=== PATIENT | female | born 1985 | race Caucasian/White ===

== ENCOUNTER 2017-07-13 16:37 | Emergency (ER) | payer SELFPAY ==
[~2017-07-13 16:37] MED LIST: CEPH500T7 PO; CYCL10TA29 PO; IBUP400T13 PO; LOR5/325 PO; NAPR500T75 PO; ONDA4TAB97 PO; OXYC-865 PO; SULF-198 PO
--- NOTE | 2017-07-13 16:43 | ER Report ---
History and Physical Time Seen By MD: 16:43 HPI/ROS CHIEF COMPLAINT: wrist and forearm injury HISTORY OF PRESENT ILLNESS: This is a 31 year old female. She slipped on the ice and her hand slammed forward into the wall by the door. She has swelling and pain in the distal forearm and wrist area. She can move her fingers, but causes increased pain. Having some numbness in the forearm, wrist and hand. Has some areas of bruising of the wrist and forearm. She says the pain is not severe , she is more concerned with the swelling and bruising. Allergies: Coded Allergies: prochlorperazine (Verified Allergy, Unknown, 07/13/17) IRREGULAR HEARTBEAT, JAUNDICE IN EYES sumatriptan (Verified Allergy, Unknown, 07/13/17) IRREGULAR HEARTBEAT, JAUNDICE IN EYES Home Meds Discontinued Scripts Sulfamethoxazole/Trimet 800-160 Mg Tab (BACTRIM DS TABLET) 1 Each Tablet, 1 TAB PO Q12H, #20 TAB 0 Refills Prov:ISABELLA WASHINGTON MD 10/09/16 Reviewed Nurses Notes: Yes Hx Substance Use Disorder: No Hx Alcohol Use: No Constitutional Vital Sign - Last 24 Hours 07/13/17 07/13/17 16:43 18:12 Temp 97.8 Pulse 117 93 Resp 16 B/P (MAP) 125/100 103/83 (90) Pulse Ox 100 96 O2 Delivery Room Air Room Air Physical Exam General: Alert, having some distress due to her symptoms. Musculoskeletal: Pain with palpation over the mid forearm and wrist area. Some pain with moving fingers and hand, but pain in the wrist and forearms. Skin: Some bruising and swelling of the wrist and forearm. Cardiovascular: Good capillary refill and pulses. Neuro: Has some decrease sensation throughout the wrist and forearm, but no cheryl numbness. Medical Decision Making EKG/Imaging Imaging Examination: WRIST RIGHT MIN 3 VIEW, FOREARM RIGHT Comparison: None. History: fall, wrist/forearm pain and swelling Findings: 2 views right forearm: No fracture. Elbow alignment is within normal limits although if there is a significant concern for elbow pathology consider further characterization with dedicated elbow radiographs. Soft tissues are unremarkable. 3 views right wrist: No fracture. Alignment and joint spaces are within normal limits. Soft tissues are unremarkable. IMPRESSION: Negative right forearm and right wrist. Report Dictated By: Guicho Madsen MD at 07/13/2017 5:52 PM ED Course/Re-evaluation ED Course Reviewed the imaging results with the patient. Conservative measures for contusion and strain. Decision to Disposition Date: Jul 13, 2017 Decision to Disposition Time: 17:57 Depart Departure Latest Vital Signs Vital Signs Date Time Temp Pulse Resp B/P (MAP) Pulse Ox O2 Delivery O2 Flow Rate FiO2 07/13/17 18:12 93 103/83 (90) 96 Room Air 07/13/17 16:43 97.8 16 Impression: Primary Impression: Contusion of forearm, right Additional Impression: Right wrist sprain Condition: Improved Disposition: HOME OR SELF-CARE New Scripts No Active Prescriptions or Reported Meds Patient Instructions: Contusion in Adults (ED), Sprain (ED) Additional Instructions: Ibuprofen 200mg over the counter tablets, take 4 tablets three times a day with food. Apply ice 20 minutes every 1-2 hours while awake. An NESTOR wrap can be used for compression to help reduce swelling. Rest the injured area, keep it elevated while at rest. Begin gentle range of motion exercises. Problem Qualifiers Primary Impression: Contusion of forearm, right Encounter type: initial encounter Qualified Codes: S50.11XA - Contusion of right forearm, initial encounter Additional Impression: Right wrist sprain Encounter type: initial encounter Qualified Codes: S63.501A - Unspecified sprain of right wrist, initial encounter ISABELLA WASHINGTON MD Jul 13, 2017 16:43
[2017-07-13] MEDS ORDERED: IBUPROFEN 800 MG TAB PO ONE (17:55)
--- NOTE | 2017-07-13 17:59 | RADIOLOGY IMAGING REPORT ---
FACILITY: [facility] PATIENT NAME: Fide Burger : 1985 MR: [id number] V: [id number] EXAM DATE: ORDERING PHYSICIAN: ISABELLA WASHINGTON TECHNOLOGIST: Location: [facility] Patient: Fide Burger : 1985 Visit/Account:[id number] Date of Sevice: 07/13/2017 Examination: WRIST RIGHT MIN 3 VIEW, FOREARM RIGHT Comparison: None. History: fall, wrist/forearm pain and swelling Findings: 2 views right forearm: No fracture. Elbow alignment is within normal limits although if there is a si gnificant concern for elbow pathology consider further characterization with dedicated elbow radiogra phs. Soft tissues are unremarkable. 3 views right wrist: No fracture. Alignment and joint spaces are within normal limits. Soft tissues a re unremarkable. IMPRESSION: Negative right forearm and right wrist. Report Dictated By: Guicho Madsen MD at 07/13/2017 5:52 PM Report E-Signed By: Guicho Madsen MD at 07/13/2017 5:55 PM WSN:[id number]
--- NOTE | 2017-07-13 17:59 | RADIOLOGY IMAGING REPORT ---
[place] [facility] [place]: Fide Burger : 1985 MR: [id number] V: [id number] EXAM DATE: ORDERING PHYSICIAN: ISABELLA WASHINGTON TECHNOLOGIST: Location: [facility] Patient: Fide Burger : 1985 Visit/Account:[id number] Date of Sevice: 07/13/2017 Examination: WRIST RIGHT MIN 3 VIEW, FOREARM RIGHT Comparison: None. History: fall, wrist/forearm pain and swelling Findings: 2 views right forearm: No fracture. Elbow alignment is within normal limits although if there is a si gnificant concern for elbow pathology consider further characterization with dedicated elbow radiogra phs. Soft tissues are unremarkable. 3 views right wrist: No fracture. Alignment and joint spaces are within normal limits. Soft tissues a re unremarkable. IMPRESSION: Negative right forearm and right wrist. Report Dictated By: Guicho Madsen MD at 07/13/2017 5:52 PM Report E-Signed By: Guicho Madsen MD at 07/13/2017 5:55 PM WSN:[id number]
[2017-07-13 18:12] VITALS: BP 103/83
== END 2017-07-13 18:16 | disposition home or self-care (01) ==
LOC: ER 16:48
DX: S50.11XA Contusion of right forearm, initial encounter (principal); S63.501A Unspecified sprain of right wrist, initial encounter
CPT/HCPCS: 99283

== ENCOUNTER 2017-11-04 09:36 | Emergency (ER) | payer SELFPAY ==
--- NOTE | 2017-11-04 10:42 | RADIOLOGY IMAGING REPORT ---
FACILITY: [facility] [place] PATIENT NAME: Fide Burger : 1985 MR: [id number] V: [id number] EXAM DATE: ORDERING PHYSICIAN: DONOVAN DAVIS TECHNOLOGIST: Location: [facility] Patient: Fide Burger : 1985 Visit/Account:[id number] Date of Sevice: 11/04/2017 WRIST LEFT MIN 3 VIEW HISTORY: Injury COMPARISON: None FINDINGS: The scaphoid bone is suboptimally profiled. No distal radial or ulnar fracture. Carpal rows are well aligned. Scaphoid bone is intact. IMPRESSION: 1. The scaphoid bone is suboptimally profiled. Otherwise no acute fracture or dislocation. Recommend dedicated scaphoid imaging if there are symptoms referrable to this site. Report Dictated By: Dionicio Estrada MD at 11/04/2017 10:37 AM Report E-Signed By: Dionicio Estrada MD at 11/04/2017 10:39 AM WSN:[id number]
[2017-11-04] MEDS ORDERED: ACETAMINOPHEN 325 MG TAB PO ONE (11:20)
--- NOTE | 2017-11-04 11:23 | ER Report ---
History and Physical Time Seen By MD: 09:45 Hx. of Stated Complaint: LEFT WRIST PAIN THAT STARTED APROX 5 DAYS. 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 No chest/shoulder pain, no sob, fevers, weakness secondary only to pain REVIEW OF SYSTEMS: Respiratory: No cough, no dyspnea. Cardiovascular: No chest pain, no palpitations. Gastrointestinal: No vomiting, no abdominal pain. Musculoskeletal: No back pain. Allergies: Coded Allergies: prochlorperazine (Verified Allergy, Unknown, 11/04/17) IRREGULAR HEARTBEAT, JAUNDICE IN EYES sumatriptan (Verified Allergy, Unknown, 11/04/17) IRREGULAR HEARTBEAT, JAUNDICE IN EYES Home Meds No Active Prescriptions or Reported Meds Reviewed Nurses Notes: Yes Hx Smoking: No Hx Substance Use Disorder: No Hx Alcohol Use: No Constitutional Vital Sign - Last 24 Hours 11/04/17 09:44 Temp 98.0 Pulse 70 Resp 16 Pulse Ox 97 O2 Delivery Room Air Physical Exam General Appearance: The patient is alert, has no immediate need for airway protection and no current signs of toxicity. [ ] Eyes: Pupils equal and round no injection. Respiratory: Chest is non tender, lungs are clear to auscultation. Cardiac: regular rate and rhythm [ ] Musculoskeletal: Neck: Neck is supple and non tender. Extremities: L arm - ttp at l ulnar groove at elbow; reproduces paresthesias and symptoms. No proximal ttp or paresthesia. Paresthesa continues in ulnar distribution including ulnar fingers; 5/5 ms flexion/extension, 5/5 finger stonemason , giveaway weakness on finger abduction. Bony ttp at distal ulnar carpal bones. No other bony ttp Skin: No rashes or lesions. [ ] DIFFERENTIAL DIAGNOSIS: After history and physical exam differential diagnosis was considered for fracture, acs, ligament injury, neuropathy, cva or other emergent etiology of symptoms Medical Decision Making EKG/Imaging Imaging X-ray: L wrist was obtained. I viewed the images myself on the PACS system. My interpretation of the images is: no fracture. The radiologist interpretation had no clinically significant variation from this interpretation.Of note, while scaphoid is inocmpletley visualized as per rads report, pt does not have scaphoid/snuff box ttp ED Course/Re-evaluation ED Course Pt refuses pain meds initially, requesting tylenol on reassessment; xray to r/o fx is unremarakble. No e/o ligamentous laxity; findings c/w overuse/ulnar neuropathy; pt given instructions on this, recommend nsaid course, rest as tolerated or able, and f/u with pcm (pt will establish) for pt/further imaging referral as needed. No e/o acs,cva, or other emergent etiology. Decision to Disposition Date: Nov 04, 2017 Decision to Disposition Time: 11:20 Depart Departure Latest Vital Signs Vital Signs Date Time Temp Pulse Resp B/P (MAP) Pulse Ox O2 Delivery O2 Flow Rate FiO2 11/04/17 09:44 98.0 70 16 97 Room Air Impression: Primary Impression: Left wrist sprain Additional Impression: Ulnar neuropathy Condition: Improved Disposition: HOME OR SELF-CARE New Scripts No Active Prescriptions or Reported Meds Departure Forms: ER Transition Record, Medications Reconciliation, Off Work/ School Form, School or Work Release?: Work Number of days to be released: 2 Patient Portal Information Patient Instructions: Peripheral Neuropathy (ED) Additional Instructions: As we discussed, rest as much as possible, but continue range of motion daily. You may use ibuprofen 600mg every 8 hours for pain and inflammation. Return for any new weakness, fevers, or uncontrolled pain. Once you establish a primary doctor, follow up for physical therapy referral. Problem Qualifiers Primary Impression: Left wrist sprain Encounter type: initial encounter Qualified Codes: S63.502A - Unspecified sprain of left wrist, initial encounter Additional Impression: Ulnar neuropathy Laterality: left Qualified Codes: G56.22 - Lesion of ulnar nerve, left upper limb DONOVAN DAVIS MD Nov 04, 2017 11:23
== END 2017-11-04 11:33 | disposition home or self-care (01) ==
LOC: ER 09:39
DX: S63.502A Unspecified sprain of left wrist, initial encounter (principal); X58.XXXA Exposure to other specified factors, initial encounter
CPT/HCPCS: 73110; 99283; A4565

== ENCOUNTER 2017-11-12 19:40 | Emergency (ER) | payer SELFPAY ==
--- NOTE | 2017-11-12 19:58 | ER Report ---
History and Physical Time Seen By MD: 19:57 Hx. of Stated Complaint: PT REPORTS ABNORMAL VAGINAL BLEEDING 1 WEEK AFTER END OF PERIOD; PINPOINT PAIN IN MID PELVIC REGION AND MID BACK, CRAMPING, 2 DAYS; NAUSEA, ROUGH SEXUAL ACTIVITY PT THINKS MIGHT HAVE CAUSED TEARING HPI/ROS CHIEF COMPLAINT: Pelvic pain, vaginal bleeding HISTORY OF PRESENT ILLNESS: Patient is a 32-year-old female here with complaints of vaginal bleeding, mid pelvic pain with radiation to the mid back, cramping for the past 2 days after sexual intercourse. Patient reports having 2 prior tubal ligations one of which had failed previously. She was concerned that she had vaginal tearing and was concerned that she was having persistent vaginal and pelvic pain. Patient is afebrile at time of evaluation, denies chest pain, shortness breath, nausea, vomiting. REVIEW OF SYSTEMS: Constitutional: No fever, no chills. Eyes: No discharge. ENT: No sore throat. Cardiovascular: No chest pain, no palpitations. Respiratory: No cough, no shortness of breath. Gastrointestinal: No abdominal pain, no vomiting. Genitourinary: No hematuria, + vaginal bleeding, pelvic pain Musculoskeletal: + Mild back pain. Skin: No rashes. Neurological: No headache. Allergies: Coded Allergies: prochlorperazine (Verified Allergy, Unknown, 11/04/17) IRREGULAR HEARTBEAT, JAUNDICE IN EYES sumatriptan (Verified Allergy, Unknown, 11/04/17) IRREGULAR HEARTBEAT, JAUNDICE IN EYES Home Meds No Active Prescriptions or Reported Meds Hx Smoking: No Hx Substance Use Disorder: No Hx Alcohol Use: No Constitutional Vital Sign - Last 24 Hours 11/12/17 19:49 Temp 98.7 Pulse 67 Resp 16 B/P (MAP) 125/96 Pulse Ox 98 O2 Delivery Room Air Physical Exam General Appearance: The patient is alert, has no immediate need for airway protection and no signs of toxicity. No acute distress Eyes: Pupils equal and round no pallor or injection. ENT, Mouth: Mucous membranes are moist. Respiratory: There are no retractions, lungs are clear to auscultation. Cardiovascular: Regular rate and rhythm. Gastrointestinal: Abdomen is soft and non tender, no masses, bowel sounds normal. Neurological: No focal neurological deficits Skin: Warm and dry, no rashes. Musculoskeletal: Neck is supple non tender. Extremities are nontender, nonswollen and have full range of motion. DIFFERENTIAL DIAGNOSIS: After history and physical exam differential diagnosis was considered for abdominal pain including but not limited to appendicitis, cholecystitis, gastritis and urinary tract infection, vaginal tearing, ectopic Medical Decision Making Data Points Result Diagram: 11/12/17201711/12/172017 Laboratory Hematology Test 11/12/17 19:51 11/12/17 20:18 Urine HCG, Qualitative Negative (NEGATIVE) Red Blood Count 4.04 M/uL (4.17-5.56) Mean Corpuscular Volume 79.6 fL (80.0-96.0) Mean Corpuscular Hemoglobin 27.6 pg (26.0-33.0) Mean Corpuscular Hemoglobin Concent 34.7 g/dL (32.0-36.0) Red Cell Distribution Width 18.0 % (11.5-14.5) Mean Platelet Volume 7.6 fL (7.2-11.1) Neutrophils (%) (Auto) 40.3 % (39.4-72.5) Lymphocytes (%) (Auto) 48.5 % (17.6-49.6) Monocytes (%) (Auto) 9.1 % (4.1-12.4) Eosinophils (%) (Auto) 1.5 % (0.4-6.7) Basophils (%) (Auto) 0.6 % (0.3-1.4) Nucleated RBC Relative Count (auto) 0.1 /100WBC Neutrophils # (Auto) 2.1 K/uL (2.0-7.4) Lymphocytes # (Auto) 2.6 K/uL (1.3-3.6) Monocytes # (Auto) 0.5 K/uL (0.3-1.0) Eosinophils # (Auto) 0.1 K/uL (0.0-0.5) Basophils # (Auto) 0.0 K/uL (0.0-0.1) Nucleated RBC Absolute Count (auto) 0.00 K/uL Sodium Level 140 mmol/L (137-145) Potassium Level 3.6 mmol/L (3.5-5.0) Chloride Level 106 mmol/L (98-107) Carbon Dioxide Level 21 mmol/L (22-31) Blood Urea Nitrogen 24 mg/dl (7-18) Creatinine 0.90 mg/dl (0.52-1.04) Glomerular Filtration Rate Calc > 60.0 Random Glucose 104 mg/dl (75-110) Calcium Level 8.8 mg/dl (8.4-10.2) Total Bilirubin 0.3 mg/dl (0.2-1.3) Aspartate Amino Transf (AST/SGOT) 28 U/L (0-35) Alanine Aminotransferase (ALT/SGPT) 22 U/L (0-56) Alkaline Phosphatase 48 U/L (0-126) Total Protein 6.7 g/dl (6.3-8.2) Albumin 4.2 g/dl (3.5-5.0) Chemistry Test 11/12/17 19:51 11/12/17 20:18 Urine HCG, Qualitative Negative (NEGATIVE) White Blood Count 5.3 k/uL (4.5-11.0) Red Blood Count 4.04 M/uL (4.17-5.56) Hemoglobin 11.2 g/dL (12.0-16.0) Hematocrit 32.1 % (34.0-47.0) Mean Corpuscular Volume 79.6 fL (80.0-96.0) Mean Corpuscular Hemoglobin 27.6 pg (26.0-33.0) Mean Corpuscular Hemoglobin Concent 34.7 g/dL (32.0-36.0) Red Cell Distribution Width 18.0 % (11.5-14.5) Platelet Count 306 K/uL (150-450) Mean Platelet Volume 7.6 fL (7.2-11.1) Neutrophils (%) (Auto) 40.3 % (39.4-72.5) Lymphocytes (%) (Auto) 48.5 % (17.6-49.6) Monocytes (%) (Auto) 9.1 % (4.1-12.4) Eosinophils (%) (Auto) 1.5 % (0.4-6.7) Basophils (%) (Auto) 0.6 % (0.3-1.4) Nucleated RBC Relative Count (auto) 0.1 /100WBC Neutrophils # (Auto) 2.1 K/uL (2.0-7.4) Lymphocytes # (Auto) 2.6 K/uL (1.3-3.6) Monocytes # (Auto) 0.5 K/uL (0.3-1.0) Eosinophils # (Auto) 0.1 K/uL (0.0-0.5) Basophils # (Auto) 0.0 K/uL (0.0-0.1) Nucleated RBC Absolute Count (auto) 0.00 K/uL Glomerular Filtration Rate Calc > 60.0 Calcium Level 8.8 mg/dl (8.4-10.2) Total Bilirubin 0.3 mg/dl (0.2-1.3) Aspartate Amino Transf (AST/SGOT) 28 U/L (0-35) Alanine Aminotransferase (ALT/SGPT) 22 U/L (0-56) Alkaline Phosphatase 48 U/L (0-126) Total Protein 6.7 g/dl (6.3-8.2) Albumin 4.2 g/dl (3.5-5.0) Urinalysis Test 11/12/17 19:51 Urine HCG, Qualitative Negative (NEGATIVE) ED Course/Re-evaluation ED Course Patient is a 32-year-old female here with complaints of left-sided pelvic pain, vaginal bleeding for the past 2 days. Patient had history of 2 prior tubal ligations. She also reports having rough intercourse approximately 2 days ago and was concerned for vaginal tearing. Transvaginal ultrasound showed a small pocket of free fluid adjacent to the left ovary consistent with possible cyst rupture as well as a cystic structure on the right ovary. Both ovaries had adequate blood flow for perfusion. Endometrial stripe is thickened and may be causing the vaginal bleeding. Beta-hCG was negative. Patient was advised to follow-up with her [facility] for follow-up. Patient was stable at time of discharge. Decision to Disposition Date: Nov 12, 2017 Decision to Disposition Time: 21:30 Depart Departure Latest Vital Signs Vital Signs Date Time Temp Pulse Resp B/P (MAP) Pulse Ox O2 Delivery O2 Flow Rate FiO2 11/12/17 19:49 98.7 67 16 125/96 98 Room Air Impression: Primary Impression: Pelvic pain Additional Impression: Vaginal bleeding Condition: Improved Disposition: HOME OR SELF-CARE New Scripts No Active Prescriptions or Reported Meds Patient Instructions: Pelvic Pain (ED) Additional Instructions: Transvaginal ultrasound revealed a small amount of fluid near the left ovary which is likely due to a cyst rupture. There is a cyst present on the right ovary and some endometrial thickening which may account for the vaginal bleeding. There were no signs of ectopic or intrauterine . Your labs were otherwise normal. Please follow-up with [facility] in the next week for further evaluation of vaginal bleeding. Your hemoglobin and blood counts were normal. Please return if you develop worsening pelvic or abdominal pain, fevers, increased bleeding. Problem Qualifiers LEONID NICHOLE DO Nov 12, 2017 19:58
[2017-11-12] MEDS ORDERED: IBUPROFEN 800 MG TAB PO ONE (20:35)
[2017-11-12 20:40] LABS: PLATELET COUNT, AUTOMATED 306 K/uL (150-450)
[2017-11-12 21:30] VITALS: BP 112/69
[2017-11-12] MEDS ORDERED: KETOROLAC 60 MG/2 ML VIAL IM ONE (21:40)
--- NOTE | 2017-11-12 21:57 | RADIOLOGY IMAGING REPORT ---
FACILITY: [facility] [place] PATIENT NAME: Fide Burger : 1985 MR: [id number] V: [id number] EXAM DATE: ORDERING PHYSICIAN: LEONID NICHOLE TECHNOLOGIST: [place] [facility] [place]: Fide Burger : 1985 Visit/Account:[id number] Date of Sevice: 11/12/2017 TRANSVAGINAL NON-OB Comparisons: Transvaginal pelvic sonogram dated October 18, 2016 Additional pertinent history: Pelvic pain and bleeding. FINDINGS: Uterus: 8.4 x 4.7 x 6.5 cm. Small slightly hypoechoic lesion immediately adjacent to the endometrium measuring 1.9 x 1.9 x 1.3 cm most consistent with a small uterine fibroid.. Endometrium. Negative. Measuring 8 mm. Right ovary: There is a predominantly anechoic structure involving the right ovary measuring 2.6 x 2. 0 x 2.8 cm. There is some slightly hyperechoic debris within this cyst dependently which could repres ent a component of previous hemorrhage into this cyst. No blood flow noted to this region of debris.. The right ovary measures 2.0 x 4.4 x 2.6 cm. Left ovary: Negative. The left ovary measures 4.7 x 1.5 x 1.6 cm . Free fluid: Small amount of free fluid adjacent to the left ovary. Pelvic vasculature: Negative. Bladder: Nondistended. IMPRESSION: 1. Small cyst involving the right ovary with what likely represents a component of previous hemorrhag e within this cyst. Given this finding however a follow-up exam in 4-6 weeks of the of benefit to ens ure resolution of this cyst. 2. Small submucosal fibroid involving the uterine body. 3. Small amount of free fluid within the pelvis. 4. Normal imaging of the left ovary. Report Dictated By: Yash Singh MD at 11/12/2017 9:49 PM Report E-Signed By: Yash Singh MD at 11/12/2017 9:53 PM WSN:[id number]
== END 2017-11-12 22:00 | disposition home or self-care (01) ==
LOC: ER 20:09
DX: R10.2 Pelvic and perineal pain (principal); N93.9 Abnormal uterine and vaginal bleeding, unspecified
CPT/HCPCS: 36415; 76830; 81025; 85025; 96372; 99283; J1885; 82040; 82247; 82310; 82374; 82435; 82565; 82947; 84075; 84132; 84155; 84295; 84450; 84460; 84520

== ENCOUNTER 2017-12-11 10:34 | Emergency (ER) | payer SELFPAY ==
[2017-12-11 10:37] VITALS: BP 117/81
[2017-12-11] MEDS ORDERED: LOR5/325 PO (11:16)
--- NOTE | 2017-12-11 11:17 | ER Report ---
History and Physical Time Seen By MD: 10:50 Hx. 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 REPORTS TINGLING IN PINKY FINGER AND RING FINGER. 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 She is experiencing numbness and weakness to her 4th and 5th fingers of her left hand. Patient is right-hand dominant. She denies any fevers or chills. She denies any similar symptoms prior Allergies: Coded Allergies: prochlorperazine (Verified Allergy, Unknown, 11/04/17) IRREGULAR HEARTBEAT, JAUNDICE IN EYES sumatriptan (Verified Allergy, Unknown, 11/04/17) IRREGULAR HEARTBEAT, JAUNDICE IN EYES Home Meds Active Scripts Hydrocodone Bit/Acetaminophen (HYDROCODON-ACETAMINOPHEN 5-325) 1 Each Tablet, 1 EACH PO Q4-6H PRN for PAIN, #15 TAB 0 Refills TAKE ONE TABLET BY MOUTH EVERY 4-6 HOURS NEEDED FOR PAIN Prov:DONOVAN BAEZ MD 12/11/17 Past Medical/Surgical History Noncontributory towards this chief complaint Hx Smoking: No Hx Substance Use Disorder: No Hx Alcohol Use: No Constitutional Vital Sign - Last 24 Hours 12/11/17 10:37 Temp 98.0 Pulse 65 Resp 18 B/P (MAP) 117/81 Pulse Ox 98 O2 Delivery Room Air Physical Exam General appearance: Alert no distress. Respiratory: Chest is non tender, lungs are clear to auscultation. Cardiac: Regular rate and rhythm Examination of left upper extremity: Examination of the Left hand reveals no acute deformity. The patient is able to give a thumbs up sign, is able to make an okay sign, and is able to AB duct the fingers. Sensation is intact over the dorsal 1st web space, the volar aspect of the 2nd finger. The patient has numbness to the dorsal pad of the 5th finger and the ulnar aspect of the left 4th finger. Capillary refill is brisk. Patient is unable to dorsiflex at the wrist secondary to pain Medical Decision Making ED Course/Re-evaluation ED Course 12/11/2017 11:12:52 am patient is able to get an MRI today at 3 PM. We'll discharge home at this time in a volar splint call any pain medicine prescription and send the patient home with a prescription for a noncontrast MRI of the left forearm. Results will be called to me at [id number]. Decision to Disposition Date: Dec 11, 2017 Decision to Disposition Time: 12:00 Depart Departure Latest Vital Signs Vital Signs Date Time Temp Pulse Resp B/P (MAP) Pulse Ox O2 Delivery O2 Flow Rate FiO2 12/11/17 10:37 98.0 65 18 117/81 98 Room Air Impression: Primary Impression: Ulnar neuropathy Condition: Condition Unchanged Disposition: HOME OR SELF-CARE New Scripts Hydrocodone Bit/Acetaminophen (HYDROCODON-ACETAMINOPHEN 5-325) 1 Each Tablet 1 EACH PO Q4-6H PRN for PAIN, #15 TAB 0 Refills TAKE ONE TABLET BY MOUTH EVERY 4-6 HOURS NEEDED FOR PAIN Prov: DONOVAN BAEZ MD 12/11/17 Patient Instructions: Peripheral Neuropathy (ED), Splint Care (ED) Additional Instructions: Wear your splint; you may remove to shower. Call and schedule a follow-up appointment with ; orthopedic surgery Return today at 3 PM to the outpatient center for your MRI of her forearm. Problem Qualifiers Primary Impression: Ulnar neuropathy Laterality: left Qualified Codes: G56.22 - Lesion of ulnar nerve, left upper limb DONOVAN BAEZ MD Dec 11, 2017 11:17
== END 2017-12-11 11:27 | disposition home or self-care (01) ==
LOC: ER 10:39
DX: G56.22 Lesion of ulnar nerve, left upper limb (principal)
CPT/HCPCS: 99282; L3763

== ENCOUNTER → 2017-12-11 | Outpatient (CLI) | payer SELFPAY ==
--- NOTE | 2017-12-11 17:55 | RADIOLOGY IMAGING REPORT ---
FACILITY: [facility] PATIENT NAME: Fide Burger : 1985 MR: [id number] V: [id number] EXAM DATE: ORDERING PHYSICIAN: DONOVAN BAEZ TECHNOLOGIST: Location: [facility] Patient: Fide Burger : 1985 Visit/Account:[id number] Date of Sevice: 12/11/2017 INDICATION: . Numbness at the fourth and fifth digits. DATE: 12/11/2017 5:38 PM. TECHNIQUE: FOREARM LEFT W/O CONTRAST. Multisequence, multiplanar noncontrast MR imaging was performed of the left forearm. COMPARISON: Forearm radiographs July 13, 2017 FINDINGS: Marrow signal is normal. No fracture or dislocation. Muscle bulk and signal are normal. No muscular edema. No fluid collection. No mass lesion. The ulnar nerve is grossly unremarkable. The flexor and extensor tendons appear normal within the imaged region. IMPRESSION: The source of numbness is not forthcoming. Report Dictated By: Selma Carcamo MD at 12/11/2017 5:38 PM Report E-Signed By: Selma Carcamo MD at 12/11/2017 5:52 PM WSN:[id number]
== END ==
LOC: MRI 14:46
PROVIDERS: ATTEND Emergency Medicine
DX: R20.2 Paresthesia of skin (principal)

== ENCOUNTER 2018-05-01 08:37 | Emergency (ER) | payer SELFPAY ==
[2018-05-01 08:40] VITALS: BP 107/71
[2018-05-01] MEDS ORDERED: AMOX-362 PO (08:50)
--- NOTE | 2018-05-01 08:51 | ER Report ---
History and Physical Time Seen By MD: 08:47 Hx. of Stated Complaint: CRACKED RIGHT TOP MOLAR [id number]. PATIENT REPORTS FEVER SINCE LAST NIGHT. HPI/ROS CHIEF COMPLAINT: Subjective fever with dental pain HISTORY OF PRESENT ILLNESS: Patient is a 32-year-old female was back to the emergency Department today with complaint of subjective fevers and some right sided dental pain she has a scheduled appointment to go see a dentist in 7 days was concerned she made some antibiotics that she may have an infection. Patient states that she has had pain with mastication on the right side for quite some time she is a known history of dental caries and probable tooth extraction scheduled. Patient says that she's never taken actually her temperature however she does say she felt febrile. Last dose of ibuprofen was yesterday. All correction last dose of ibuprofen was this morning. Patient has no additional complaints REVIEW OF SYSTEMS: Respiratory: No cough, no dyspnea. Cardiovascular: No chest pain, no palpitations. Gastrointestinal: No vomiting, no abdominal pain. Musculoskeletal: No back pain. Remainder of the 14 system rev: Yes Allergies: Coded Allergies: prochlorperazine (Verified Allergy, Unknown, 11/04/17) IRREGULAR HEARTBEAT, JAUNDICE IN EYES sumatriptan (Verified Allergy, Unknown, 11/04/17) IRREGULAR HEARTBEAT, JAUNDICE IN EYES Home Meds Active Scripts Hydrocodone Bit/Acetaminophen (HYDROCODON-ACETAMINOPHEN 5-325) 1 Each Tablet, 1 EACH PO Q4-6H PRN for PAIN, #15 TAB 0 Refills TAKE ONE TABLET BY MOUTH EVERY 4-6 HOURS NEEDED FOR PAIN Prov:DONOVAN BAEZ MD 12/11/17 Reviewed Nurses Notes: Yes Old Medical Records Reviewed: Yes Hx Smoking: No Hx Substance Use Disorder: No Hx Alcohol Use: No Constitutional Vital Sign - Last 24 Hours 05/01/18 08:40 Temp 97.8 Pulse 68 Resp 16 B/P (MAP) 107/71 Pulse Ox 91 O2 Delivery Room Air Physical Exam General appearance: Alert no distress. Respiratory: Chest is non tender, lungs are clear to auscultation. Cardiac: Regular rate and rhythm [ ] Dental examination patient has obvious dental caries of both the superior and inferior right posterior molars no obvious signs of infection no abscess formation no gingival hyperplasia or gingival changes. No sign of oral mucosa involvement. No lymphadenopathy DIFFERENTIAL DIAGNOSIS: After history and physical exam differential diagnosis was considered for dental caries Medical Decision Making ED Course/Re-evaluation ED Course Medical decision-making 32 female with subjective fevers and dental caries I will start her on a by mouth antibiotic not because I believe she has an obvious infection but because due to her poor dentition and affectionate seeing her doctor for a week consisting of obvious significant dental work performed it would be reasonable to prophylactically cover her for of opportunities for dental infection Decision to Disposition Date: May 01, 2018 Decision to Disposition Time: 08:51 Depart Departure Latest Vital Signs Vital Signs Date Time Temp Pulse Resp B/P (MAP) Pulse Ox O2 Delivery O2 Flow Rate FiO2 05/01/18 08:40 97.8 68 16 107/71 91 Room Air Impression: Primary Impression: Dental caries Condition: Condition Unchanged Disposition: HOME OR SELF-CARE Referrals: REYMUNDO ESPOSITO MD 5 Days New Scripts Amoxicillin (AMOXICILLIN) 500 Mg Capsule 1 CAP PO Q8H, #15 CAPSULE 0 Refills TAKE ONE CAPSULE BY MOUTH EVERY 8 HOURS Prov: LUCILA PACHECO MD 05/01/18 Patient Instructions: Dental Caries (DC) LUCILA PACHECO MD May 01, 2018 08:51
== END 2018-05-01 08:56 | disposition home or self-care (01) ==
LOC: ER 08:44
DX: K02.9 Dental caries, unspecified (principal)
CPT/HCPCS: 99282

== ENCOUNTER → 2018-07-08 | Outpatient (REF) | payer SELFPAY ==
[~2018-07-08] MED LIST changes: +AMOX-362 PO
[2018-07-08 12:27] LABS: PLATELET COUNT, AUTOMATED 337 K/uL (150-450)
== END ==
PROVIDERS: ATTEND Nurse Practitioner Family
DX: R10.9 Unspecified abdominal pain (principal)
CPT/HCPCS: 82040; 82247; 82310; 82374; 82435; 82565; 82947; 84075; 84132; 84155; 84295; 84450; 84460; 84520; 85025